=== PATIENT | male | born 1955 | race Caucasian/White ===

== ENCOUNTER → 2020-03-10 14:25 | Outpatient (CLI) | payer MEDICARE, SELFPAY ==
[2020-03-10] MEDS: COVID-19 VACC #1, MRNA(MOD) 100 MCG/0.5 ML VIAL IM (14:30)
== END ==
PROVIDERS: Visit Provider Internal Medicine
DX: Z23 Encounter for immunization (principal)
CPT/HCPCS: 0011A; 91301

== ENCOUNTER → 2020-04-07 08:45 | Outpatient (CLI) | payer MEDICARE, SELFPAY ==
[2020-04-07] MEDS: COVID-19 VACC #2, MRNA(MOD) 100 MCG/0.5 ML VIAL IM (08:51)
== END ==
PROVIDERS: Visit Provider Internal Medicine
DX: Z23 Encounter for immunization (principal)
CPT/HCPCS: 0012A; 91301

== ENCOUNTER → 2021-07-18 10:33 | Outpatient (CLI) | payer MEDICARE, BC, SELFPAY ==
[2021-07-18 11:40] LABS: Hemoglobin A1C% w Est Avg Glu 6.1 % (4.0-6.0)
[2021-07-18 12:32] LABS: C-Reactive Protein Quant 0.6 mg/dL (<1.0)
== END ==
PROVIDERS: PCP Registered Nurse Diabetes Educator; Referring Provider Registered Nurse Diabetes Educator; Visit Provider Registered Nurse Diabetes Educator
DX: R73.9 Hyperglycemia, unspecified (principal); R73.03 Prediabetes; R79.82 Elevated C-reactive protein (CRP)
CPT/HCPCS: 36415; 83036; 86140

== ENCOUNTER → 2021-12-14 10:15 | Outpatient (CLI) | payer MEDICARE, BC, SELFPAY ==
[2021-12-14 11:09] LABS: Hematocrit 43.9 % (41-53); Hemoglobin 14.4 g/dL (13.5-17.5); Mean Corpuscular HGB Conc 32.7 % (30-36); Mean Corpuscular Hemoglobin 30.2 PG (26-34); Mean Corpuscular Volume 92.4 fL (80-100); Platelet Count 228 X10^3/uL (150-400); Red Blood Cell Count 4.75 X10^6/uL (4.5-5.9); Red Cell Distribution Width 13.6 % (11.6-14.8); White Blood Cell Count 7.4 X10^3/uL (4.5-11.0)
[2021-12-14 11:38] LABS: Alanine Aminotransferase 19 IU/L (<50); Albumin 4.3 g/dL (3.5-5.0); Albumin Globulin Ratio 1.7 (1.0-2.8); Alkaline Phosphatase 90 U/L (38-126); Aspartate Aminotransferase 23 IU/L (17-59); BUN Creatinine Ratio 17.3 (6-22); Bilirubin Total 0.4 mg/dL (0.2-1.3); Blood Urea Nitrogen 14 mg/dL (9-20); Calcium 9.1 mg/dL (8.4-10.2); Carbon Dioxide 27 mmol/L (22-32); Chloride 102 mmol/L (98-107); Cholesterol 121 mg/dL (140-199); Estimated Glomerular Filt Rate > 60 mL/min (>60); Globulin 2.5 g/dL (1.7-4.1); Glucose 93 mg/dL (80-110); HDL Cholesterol 46 mg/dL (40-60); HEMOLYSIS < 15 (0-50); LDL Cholesterol Calculated 54 mg/dL (<100); Potassium 4.4 mmol/L (3.4-5.1); Sodium 138 mmol/L (137-145); Total Protein 6.8 g/dL (6.3-8.2); Triglycerides 106 mg/dL (35-150)
[2021-12-14 12:12] LABS: TSH w/ Reflex to FT4 2.13 uIU/mL (0.47-4.68)
[2021-12-14 12:51] LABS: Hemoglobin A1C% w Est Avg Glu 5.8 % (4.0-6.0)
== END ==
PROVIDERS: PCP Registered Nurse Diabetes Educator; Referring Provider Registered Nurse Diabetes Educator; Visit Provider Registered Nurse Diabetes Educator
DX: E78.5 Hyperlipidemia, unspecified (principal); R73.03 Prediabetes
CPT/HCPCS: 36415; 80053; 80061; 83036; 84443; 85027

== ENCOUNTER → 2023-06-27 12:14 | Outpatient (CLI) | payer MEDICARE, BC, SELFPAY ==
[2023-06-27 13:15] LABS: C-Reactive Protein Quant 0.7 mg/dL (<1.0)
== END ==
PROVIDERS: PCP Registered Nurse Diabetes Educator; Referring Provider Registered Nurse Diabetes Educator; Visit Provider Registered Nurse Diabetes Educator
DX: R79.82 Elevated C-reactive protein (CRP) (principal)
CPT/HCPCS: 36415; 86140

== ENCOUNTER → 2023-07-03 08:55 | Outpatient (CLI) | payer MEDICARE, BC, SELFPAY ==
[2023-07-03 15:29] LABS: High Sensitivity CRP - Cardiac 10.3 mg/L (1.0-3.0)
== END ==
LOC: LAB 08:57
PROVIDERS: PCP Registered Nurse Diabetes Educator; Referring Provider Registered Nurse Diabetes Educator; Visit Provider Registered Nurse Diabetes Educator
DX: R79.82 Elevated C-reactive protein (CRP) (principal)
CPT/HCPCS: 36415; 86140

== ENCOUNTER → 2023-08-03 12:21 | Outpatient (CLI) | payer MEDICARE, BC, SELFPAY ==
[2023-08-03 15:09] LABS: High Sensitivity CRP - Cardiac 3.6 mg/L (1.0-3.0)
== END ==
LOC: LAB 12:24
PROVIDERS: PCP Registered Nurse Diabetes Educator; Referring Provider Registered Nurse Diabetes Educator; Visit Provider Registered Nurse Diabetes Educator
DX: R79.82 Elevated C-reactive protein (CRP) (principal); Z82.49 Family history of ischemic heart disease and other diseases of the circulatory system
CPT/HCPCS: 86140

== ENCOUNTER → 2024-07-16 12:23 | Outpatient (CLI) | payer MEDICARE, BC, SELFPAY ==
[2024-07-16 12:56] LABS: Estimated Glomerular Filt Rate > 60 mL/min (>60)
== END ==
PROVIDERS: PCP Registered Nurse Diabetes Educator; Referring Provider Registered Nurse Diabetes Educator; Visit Provider Registered Nurse Diabetes Educator
DX: I71.21 Aneurysm of the ascending aorta, without rupture (principal)
CPT/HCPCS: 36415; 82565

== ENCOUNTER → 2024-07-18 12:15 | Outpatient (CLI) | payer MEDICARE, BC, SELFPAY ==
--- NOTE | 2024-07-18 12:16 | DI.CT.S_ITS ---
PROCEDURE: CT ANGIO CHEST INDICATIONS: reeval ascending aortic aneurysm TECHNIQUE: After the administration of intravenous contrast, 2.5 mm thick sections acquired from the lung apices to the posterior lung bases. Maximum intensity projection (MIP) oblique sagittal reformats were then acquired parallel to the aortic arch. For radiation dose reduction, the following was used: automated exposure control. COMPARISON: None. FINDINGS: Image quality: Excellent. Aorta: Aorta and great vessels are normal in size. No mural irregularity or contrast extravasation to suggest aortic injury. Lower Neck: No enlarged lymph nodes. Thyroid: No thyroid nodules which require sonographic follow up, per consensus guidelines. Axillae: No enlarged lymph nodes. Chest Wall: Unremarkable. Bones: Unremarkable. Lungs and Pleura: No pneumothorax or pleural effusions. Several solid in a in the right lung, many of them pleural base, measuring up to 7.4 millimeter in the right lower lobe. Heart: Heart size is normal. No pericardial effusion. Thoracic Vessels: The ascending aorta measures 4 cm. Normal caliber of the aortic arch measuring 2.7 cm and descending aorta measuring 2.4 cm. Mild atherosclerotic disease. No saccular aneurysm. Mediastinum and [place]enc[place]: No enlarged lymph nodes. Esophagus: No wall thickening. No hiatal hernia. Upper Abdomen: Visualized upper abdomen solid organs and bowel loops appear normal. IMPRESSION: 1. Borderline ectasia of the ascending aorta measuring 4 cm. No saccular aneurysm. 2. Several subcentimeter lung nodules, seen especially in the right lung, probably intrapulmonary lymph nodes. If no outside prior study for comparison, follow-up CT may be obtained in 6 months. Dictated by: Nael Ojeda M.D. on 07/18/2024 at 13:49 Approved by: Nael Ojeda M.D. on 07/18/2024 at 13:54
== END ==
PROVIDERS: PCP Registered Nurse Diabetes Educator; Referring Provider Registered Nurse Diabetes Educator; Visit Provider Registered Nurse Diabetes Educator
DX: I71.21 Aneurysm of the ascending aorta, without rupture (principal); R91.8 Other nonspecific abnormal finding of lung field
CPT/HCPCS: 71275; Q9967